=== PATIENT | female | born 1930 | race Caucasian/White ===

== ENCOUNTER 2018-04-10 20:35 | Observation (INO) | payer MEDICARE, OTHER ==
[~2018-04-10] VITALS: Ht 162.6 cm; Wt 63.5 kg
[2018-04-10] MEDS ORDERED: cloNIDine HCL 0.1 MG TAB PO ONE (21:30)
[2018-04-10 21:53] LABS: Urine WBC None Seen /hpf (0 - 5)
[2018-04-10 21:55] LABS: Basophils # (auto) 0 uL; Basophils % (auto) 0.5 % (0.0-2.0); Eosinophils # (auto) 0.2 uL; Eosinophils % (auto) 1.9 % (0.0-7.0); Hematocrit 36.3 % (36.0-46.0); Lymphocytes # (auto) 2.3 uL; Lymphocytes % (auto) 25.1 % (10.0-50.0); Mean Corpuscular Hemoglobin 31.7 pg (28.0-32.0); Mean Corpuscular Hgb Conc. 35.7 g/dL (32.0-36.0); Mean Corpuscular Volume 88.8 fL (80.0-100.0); Monocytes # (auto) 0.8 uL; Monocytes % (auto) 8.3 % (0.0-12.0); Neutrophils % (auto) 64.2 % (37.0-80.0); Nucleated Red Blood Cells % 0.1 %; Platelet Count (auto) 191 10^3/uL (140-450); Red Blood Cells 4.09 10^6/uL (4.0-5.20); Red Cell Distribution Width 13.2 % (11.8-14.3); White Blood Cell 9.3 10^3/uL (4.4-10.8)
[2018-04-10 22:10] LABS: Partial Thromboplastin Time 27.8 sec (23.78-33.04); Prothrombin Time 10.7 sec (9.27-12.13)
[2018-04-10 22:11] LABS: Urine Bacteria NONE SEEN /hpf (None Seen); Urine Blood Negative /uL (Negative); Urine Specific Gravity 1.004 (1.001-1.035)
[2018-04-10 22:31] LABS: Alcohol, Urine < 3.0 mg/dL (0-5); Amphetamine Screen, Urine NEGATIVE (NEGATIVE); Barbiturate Scree,Urine NEGATIVE (NEGATIVE); Benzodiazephine Screen, Urine NEGATIVE (NEGATIVE); Cannabinoid Screen, Urine NEGATIVE (NEGATIVE); Cocaine Screen, Urine NEGATIVE (NEGATIVE); Opiate Scree,Urine NEGATIVE (NEGATIVE); Phencyclidine Screen, Urine NEGATIVE (NEGATIVE)
[2018-04-10 22:36] LABS: Alanine Aminotransferase 30 U/L (13-56); Albumin 3.8 g/dL (3.4-5.0); Alkaline Phosphatase 70 U/L (45-117); Anion Gap 5 (5-15); Aspartate Aminotransferase 18 U/L (15-37); BUN/Creatinine Ratio 12.9; Bilirubin, Total 0.7 mg/dL (0.2-1.0); Blood Urea Nitrogen 9 mg/dL (7-18); Calcium 8.1 mg/dL (8.5-10.1); Carbon Dioxide 25 mmol/L (21-32); Chloride 96 mmol/L (98-107); GFR African American 102 mL/min; GFR Non-African American 84 mL/min; Glucose 102 mg/dL (74-106); Magnesium 2.1 mg/dL (1.6-2.6); Potassium 3.7 mmol/L (3.5-5.1); Sodium 126 mmol/L (136-145); Total Protein 6.6 g/dL (6.4-8.2)
[2018-04-11] MEDS ORDERED: FUROSEMIDE 20 MG/2 ML VIAL IV ONE (01:15)
[2018-04-11 01:40] VITALS: BP 124/83
== END 2018-04-11 01:41 | disposition home or self-care (01) | DRG 948 ==
LOC: ER 20:41 → OVERFLOW 20:42 → ER 04-11 01:41
PROVIDERS: ADMIT Emergency Medicine; ATTEND Emergency Medicine
DX: R53.1 Weakness (principal); E87.1 Hypo-osmolality and hyponatremia; R42 Dizziness and giddiness; I11.0 Hypertensive heart disease with heart failure; I50.9 Heart failure, unspecified; E78.00 Pure hypercholesterolemia, unspecified; Z86.73 Personal history of transient ischemic attack (TIA), and cerebral infarction without residual deficits
CPT/HCPCS: 36415; 70450; 71045; 80053; 80307; 81001; 83735; 83880; 84484; 85025; 85610; 85730; 93005; 99285; G0378

== ENCOUNTER 2018-11-24 18:29 | Emergency (ER) | payer MEDICARE, OTHER ==
[~2018-11-24] VITALS: Ht 157.5 cm; Wt 64.4 kg
[2018-11-24 20:15] VITALS: BP 112/56
== END 2018-11-24 22:02 | disposition home or self-care (01) ==
LOC: ER 18:29
DX: S70.02XA Contusion of left hip, initial encounter (principal); S70.12XA Contusion of left thigh, initial encounter; S00.03XA Contusion of scalp, initial encounter; E78.5 Hyperlipidemia, unspecified; I10 Essential (primary) hypertension; F03.90 Unspecified dementia, unspecified severity, without behavioral disturbance, psychotic disturbance, mood disturbance, and anxiety; Z86.73 Personal history of transient ischemic attack (TIA), and cerebral infarction without residual deficits; W18.39XA Other fall on same level, initial encounter; Y93.89 Activity, other specified; Y99.8 Other external cause status; Y92.89 Other specified places as the place of occurrence of the external cause
CPT/HCPCS: 70450; 72170; 82962; 94761

== ENCOUNTER 2018-11-30 14:59 | Inpatient (IN) | payer MEDICARE, OTHER ==
[~2018-11-30] VITALS: Ht 167.6 cm; Wt 68.2 kg
[2018-11-30 17:23] LABS: Urine Bacteria MANY /hpf (None Seen); Urine Blood Negative /uL (Negative); Urine WBC 78 /hpf (0 - 5)
[2018-11-30 18:27] LABS: Basophils # (auto) 0 uL; Basophils % (auto) 0.5 % (0.0-2.0); Eosinophils # (auto) 0.2 uL; Eosinophils % (auto) 1.7 % (0.0-7.0); Hematocrit 26.5 % (36.0-46.0); Hemoglobin 9.2 g/dL (12.2-16.2); Lymphocytes # (auto) 1.4 uL; Lymphocytes % (auto) 14.4 % (10.0-50.0); Mean Corpuscular Hemoglobin 31.5 pg (28.0-32.0); Mean Corpuscular Hgb Conc. 34.5 g/dL (32.0-36.0); Mean Corpuscular Volume 91.1 fL (80.0-100.0); Monocytes # (auto) 0.9 uL; Monocytes % (auto) 9.5 % (0.0-12.0); Neutrophils # (auto) 7.1 uL; Neutrophils % (auto) 73.9 % (37.0-80.0); Platelet Count (auto) 240 10^3/uL (140-450); Red Blood Cells 2.92 10^6/uL (4.0-5.20); Red Cell Distribution Width 13.6 % (11.8-14.3); White Blood Cell 9.6 10^3/uL (4.4-10.8)
[2018-11-30 18:38] LABS: Albumin 3.8 g/dL (3.4-5.0); Anion Gap 7 (5-15); Blood Urea Nitrogen 17 mg/dL (7-18); Calcium 8.5 mg/dL (8.5-10.1); Carbon Dioxide 25 mmol/L (21-32); Chloride 103 mmol/L (98-107); Glucose 111 mg/dL (74-106); Potassium 4.4 mmol/L (3.5-5.1); Sodium 135 mmol/L (136-145)
[2018-11-30 18:40] LABS: INR 0.96 (0.9-1.15); Partial Thromboplastin Time 28.9 sec (23.78-33.04); Prothrombin Time 10.3 sec (9.27-12.13)
[2018-11-30 18:42] LABS: Alanine Aminotransferase 20 U/L (13-56); Alkaline Phosphatase 61 U/L (45-117); Aspartate Aminotransferase 18 U/L (15-37); BUN/Creatinine Ratio 23.3; GFR African American 97 mL/min; GFR Non-African American 80 mL/min; Total Protein 6.5 g/dL (6.4-8.2)
[2018-11-30] MEDS ORDERED: ADENOSINE 6 MG/2 ML INJ IV ONE ×2 (19:20→19:45)
[2018-11-30] MEDS ORDERED: LORazepam 2MG/ML-1ML VIAL ONE (19:56)
[2018-11-30] MEDS ORDERED: LORazepam 2MG/ML-1ML VIAL IV ONE ×2 (20:00)
[2018-11-30] MEDS ORDERED: HYDROcodone-ACET 5/325MG TAB PO PRN (20:00)
[2018-11-30] MEDS ORDERED: ACETAMINOPHEN 500 MG TAB PO PRN (20:00)
[2018-11-30] MEDS ORDERED: ONDANSETRON HCL 4 MG/2 ML VIAL IV PRN (20:00)
[2018-11-30] MEDS ORDERED: MORPHINE SULF INJ 2 MG/ML SYRINGE 1ML IV PRN (20:00)
[2018-11-30] MEDS ORDERED: LORazepam 2MG/ML-1ML VIAL IV PRN (20:00)
[2018-11-30] MEDS ORDERED: NITROGLYCERIN 0.4 MG SL TAB SL PRN (20:00)
[2018-11-30] MEDS: cefTRIAXone 1GM/50ML D5W 50 ML IV SCH (20:43)
[2018-11-30] MEDS: SODIUM CHLORIDE 0.9% 1,000 ML IV SCH (20:43)
--- NOTE | 2018-11-30 21:17 | NUR ---
Telemetry admit from [facility] admitted to Telemetry unit after SBAR received. Patient oriented to Richard Sena, primary RN, unit, room, bed, and unit policies regarding patient care and visiting hours. Patient now on continuous telemetry monitoring, tele box # [8] and telemetry reading on arrival to unit is [SR 85]. Patient weighed by bedscale. PATIENT CONFUSED, ALERT AND ORIENTED X 0. KELLY CATH IN PLACE DRAINING GRAVITY. BED IN LOWEST POSITION WITH SIDE RAILS UP X 2. CALL HILLIARD WITHIN REACH. ALARM ON. SITTER AT BEDSIDE FOR SAFETY. CONTINUE TO MONITOR FOR CHANGES Q1H AND PRN. Note: []
--- NOTE | 2018-11-30 21:33 | NUR ---
HOSPITALIST Called/paged LOBO DAO called re: PATIENT'S AGITATE AND TRYING TO REMOVE KELLY AND TELE BOX AND GET OUT OF BED. ATIVAN WAS GIVEN 1 HOUR AGO PER ER NURSE. PATIENT STILL AGITATE AND BECAME COMBATIVE. MITTENS ON, PATIENT TRY TO REMOVE THE MITTENS. CHARGE NURSE INFORMED AND CAME TO CHECK PATIENT. MIGHT NEED MORE MEDICATION TO CALM PATIENT DOWN. Waiting for call back. Continue care.
[2018-11-30 21:56] VITALS: BP 142/67
--- NOTE | 2018-11-30 22:04 | NUR ---
HOSPITALIST LOBO DAO CAME TO FLOOR, UPDATED PATIENT'S CONDITION. ORDERED BENADRYL 50MG IV ONCE. WILL CARRY IT OUT. CONTINUE TO MONITOR.
[2018-11-30] MEDS ORDERED: diphenhdrAMINE HCL 50 MG/1 ML VL IV ONE (22:15)
[2018-11-30] MEDS: DOCUSATE SOD 100 MG CAP PO SCH (23:17)
[2018-11-30] MEDS: MEMANTINE HCL 5 MG TAB PO SCH (23:18)
--- NOTE | 2018-11-30 23:18 | NUR ---
ORAL MEDICATION GIVEN ORDERED WITH APPLE SAUCE. PATIENT SWALLOWED WELL. NO S/S OF ASPIRATION NOTED. CONTINUE TO MONITOR.
[2018-11-30 23:22] VITALS: BP 142/67
[2018-12-01] VITALS (7 sets, daily range): BP systolic 135–172; BP diastolic 58–89
[2018-12-01] MEDS ORDERED: ALPR0.25 PO (00:13)
[2018-12-01] MEDS ORDERED: ALPR0.5T PO (00:13)
[2018-12-01] MEDS ORDERED: ASCO500T11 PO (00:14)
[2018-12-01] MEDS ORDERED: LEV100T PO (00:14)
--- NOTE | 2018-12-01 02:24 | NUR ---
PATIENT RESTING BED WITH MITTENS ON. STILL AGITATED AND TRIED TO REMOVE BLANKET AND MITTENS OUT. NO S/S OF DISTRESS NOTED. SITTER AT BEDSIDE FOR SAFETY. CONTINUE CAR.E
--- NOTE | 2018-12-01 04:24 | NUR ---
PATIENT SLEEPING. NO S/S OF DISTRESS NOTED. CONTINUE CARE.
[2018-12-01] MEDS: SODIUM CHLORIDE 0.9% 1,000 ML IV SCH ×2 (05:09→14:05)
[2018-12-01 06:13] LABS: Basophils # (auto) 0 uL; Basophils % (auto) 0.5 % (0.0-2.0); Eosinophils # (auto) 0.2 uL; Eosinophils % (auto) 2.7 % (0.0-7.0); Hematocrit 24.7 % (36.0-46.0); Hemoglobin 8.5 g/dL (12.2-16.2); Lymphocytes # (auto) 1.2 uL; Lymphocytes % (auto) 16.4 % (10.0-50.0); Mean Corpuscular Hemoglobin 31.5 pg (28.0-32.0); Mean Corpuscular Hgb Conc. 34.6 g/dL (32.0-36.0); Mean Corpuscular Volume 90.9 fL (80.0-100.0); Monocytes # (auto) 0.8 uL; Monocytes % (auto) 11.1 % (0.0-12.0); Neutrophils # (auto) 5.2 uL; Neutrophils % (auto) 69.3 % (37.0-80.0); Platelet Count (auto) 215 10^3/uL (140-450); Red Blood Cells 2.72 10^6/uL (4.0-5.20); Red Cell Distribution Width 13.3 % (11.8-14.3); White Blood Cell 7.5 10^3/uL (4.4-10.8)
[2018-12-01 06:53] LABS: Calcium 8.1 mg/dL (8.5-10.1); Potassium 3.7 mmol/L (3.5-5.1)
--- NOTE | 2018-12-01 08:00 | NUR ---
RECEIVED PT RESTING SLEEPING COMFORTABLY, CALL LIGHT WITHIN REACH, SITTER AT BED SIDE, NO PAIN OR DISTRESS NOTED OR REPORTED AT THIS TIME, WILL CONTINUE TO MONITOR PT.
[2018-12-01] MEDS: MEMANTINE HCL 5 MG TAB PO SCH ×2 (09:41→21:09)
[2018-12-01] MEDS: DOCUSATE SOD 100 MG CAP PO SCH ×2 (09:41→21:09)
[2018-12-01] MEDS: cefTRIAXone 1GM/50ML D5W 50 ML IV SCH (09:41)
[2018-12-01] MEDS: PANTOPRAZOLE 40 MG TAB PO SCH (09:41)
--- NOTE | 2018-12-01 12:40 | NUR ---
DR. VALLECILLO AT BED SIDE TO SEE PT, DOCTOR DISCUSSED PT'S PLAN OF CARE WITH PT'S FAMILY.
[2018-12-01] MEDS ORDERED: LOSA25TA40 PO (13:32)
--- NOTE | 2018-12-01 13:50 | NUR ---
CALLED AND SPOKE TO DR. VALLECILLO TO INFORM HER THAT PT'S BP IS 184/89 WITH HR 75, DOCTOR INFORM WHAT BP MEDICATION PT TAKES AT HOME, AND THAT PT HAS NO BP MEDICATION SCHEDULE OR PRN, DR. VALLECILLO WILL ORDER MEDICINE FOR THIS PT.
[2018-12-01] MEDS ORDERED: LOSARTAN POTASSIUM 25 MG TAB PO ONE (14:00)
[2018-12-01] MEDS ORDERED: LORazepam 2MG/ML-1ML VIAL IV PRN (14:15)
--- NOTE | 2018-12-01 15:50 | NUR ---
CALLED AND SPOKE TO DR. VALLECILLO TO INFORM HER THAT PT'S RE-CHECK BP IS 184/79, 75 AFTER HER LOSARTAN WAS GIVEN, ORDERS RECEIVE FOR HYDRALAZINE, WILL CONTINUE TO MONITOR PT.
[2018-12-01] MEDS: hydrALAZINE HCL 20 MG/ML VL IV PRN (16:23)
--- NOTE | 2018-12-01 19:25 | NUR ---
OPENING NOTE REPORT RECEIVED FROM DAY SHIFT PATIENT IS ALERT AND CONFUSED. PT ONLY ABLE TO STATE FIRST NAME. PHYSICAL ASSESSMENT DONE-SEE INTERVENTIONS. LARGE BRUISE NOTED TO LEFT THIGH/BUTTOCK. LEFT EYE AND LEFT CHIN BRUISE ALSO NOTED. PATIENT ABLE TO TURN AND REPOSITION SELF IN BED. KELLY DRAINING CLEAR YELLOW URINE TO GRAVITY. MITTENS IN PLACE TO BILATERAL HANDS. SITTER AT BEDSIDE FOR PATIENT SAFETY. CALL LIGHT WITHIN REACH.
[2018-12-01] MEDS ORDERED: HALOPERIDOL LACTATE 5 MG/ML INJ VIAL IM PRN (19:45)
[2018-12-01] MEDS: DONEPEZIL HYDROCHLORIDE 5 MG TAB PO SCH (21:09)
[2018-12-01] MEDS ORDERED: DONEPEZIL HYDROCHLORIDE 5 MG TAB PO SCH (22:00)
[2018-12-02 04:47] VITALS: BP 162/82
[2018-12-02] MEDS: hydrALAZINE HCL 20 MG/ML VL IV PRN ×2 (06:14→21:59)
[2018-12-02] MEDS: LEVOTHYROXINE SODIUM 50 MCG TAB PO SCH (06:14)
[2018-12-02] MEDS: SODIUM CHLORIDE 0.9% 1,000 ML IV SCH (06:14)
--- NOTE | 2018-12-02 06:58 | NUR ---
CLOSING NOTE PATIENT RESTING IN BED WITH EYES CLOSED. NO S/S OF DISTRESS. SITTER AT BEDSIDE FOR SAFETY. CALL LIGHT WITHIN REACH. WILL ENDORSE CARE TO AM NURSE.
[2018-12-02 07:02] LABS: Hematocrit 27.8 % (36.0-46.0); Hemoglobin 9.9 g/dL (12.2-16.2)
[2018-12-02 07:14] LABS: Potassium 3.5 mmol/L (3.5-5.1)
--- NOTE | 2018-12-02 07:15 | NUR ---
OPENING SHIFT NOTE ASSUMED CARE OF PATIENT FROM COMPRESSED AIR PILE DRIVER OPERATOR SONYA GALEANO. PATIENT IS AWAKE AND ALERT X1 (NAME). WILL CONTINUE TO REORIENT PATIENT TO TIME, PLACE, AND SITUATION THROUGHOUT SHIFT. PATIENT HAS NO S/S OF DISTRESS/SOB OR PAIN. INSTRUCTED PATIENT ON POC, PATIENT VERBALIZED UNDERSTANDING. BED IS IN LOWEST POSITION WITH SIDE RAILS RAISED X2, BED WHEELS LOCKED, KELLY IS HANGING BELOW BLADDER AND IS DRAINING YELLOW URINE, SITTER AT BEDSIDE, AND CALL LIGHT IS WITHIN REACH. WILL CONTINUE TO MONITOR.
[2018-12-02 07:17] LABS: Calcium 8.5 mg/dL (8.5-10.1)
[2018-12-02 07:34] VITALS: BP 141/87
--- NOTE | 2018-12-02 08:00 | NUR ---
MD IVEY AT BEDSIDE UPDATED MD ON PATIENT'S STATUS. MD IS AWARE. NO NEW ORDERS GIVEN.
[2018-12-02 08:30] VITALS: BP 147/87
[2018-12-02] MEDS: MEMANTINE HCL 5 MG TAB PO SCH ×2 (09:54→21:58)
[2018-12-02] MEDS: cefTRIAXone 1GM/50ML D5W 50 ML IV SCH (09:54)
[2018-12-02] MEDS: PANTOPRAZOLE 40 MG TAB PO SCH (09:55)
[2018-12-02] MEDS: DOCUSATE SOD 100 MG CAP PO SCH ×2 (09:55→21:59)
[2018-12-02] MEDS ORDERED: LOSARTAN POTASSIUM 25 MG TAB PO SCH (10:00)
[2018-12-02] MEDS ORDERED: LACTULOSE 20Gm/30ML SOLN PO ONE (14:15)
[2018-12-02] MEDS ORDERED: DOCUSATE SOD 100 MG CAP PO ONE ×3 (14:15→15:00)
--- NOTE | 2018-12-02 14:15 | NUR ---
SAFETY LEADER AT BEDSIDE
--- NOTE | 2018-12-02 14:30 | NUR ---
MD WILSON AT BEDSIDE. UPDATED MD ON PATIENT'S STATUS. INFORMED MD PATIENT WAS GIVEN COLACE IN THE MORNING ORDERED BUT PATIENT HAS NOT HAD A BM YET. MD CANCELLED EEG ORDERS AND ORDERED LACTULOSE AND COLACE TO BE GIVEN . WILL FOLLOW THROUGH WITH ORDERS.
[2018-12-02 14:40] VITALS: BP 146/76
--- NOTE | 2018-12-02 15:01 | NUR ---
IV insertion IV access obtained, via clean sterile technique by inserting 22 gauge catheter at RFA after 1 attempt. IV secured properly. No trauma to site. Patient tolerated well. IV removal RAC IV DC'd with clean sterile technique, catheter fully intact. Pressure dressing applied to site. Patient tolerated well.
[2018-12-02 17:10] VITALS: BP 147/97
--- NOTE | 2018-12-02 19:11 | NUR ---
CLOSING SHIFT NOTE ENDORSED CARE TO FLAGGER SONYA GALEANO. PATIENT HAS NO S/S OF DISTRESS/SOB OR PAIN AT THIS TIME.
--- NOTE | 2018-12-02 19:28 | NUR ---
OPENING NOTE REPORT RECEIVED FROM DAY SHIFT PATIENT IS ALERT/CONFUSED AND PLEASANT. PT ONLY ALERT TO SELF AT THIS TIME. PHYSICAL ASSESSMENT DONE-SEE INTERVENTIONS. LARGE BRUISE NOTED TO LEFT THIGH/BUTTOCK. LEFT EYE AND LEFT CHIN BRUISE ALSO NOTED. PATIENT ABLE TO TURN AND REPOSITION SELF IN BED. KELLY DRAINING CLEAR YELLOW URINE TO GRAVITY. SITTER AT BEDSIDE FOR PATIENT SAFETY. CALL LIGHT WITHIN REACH.
[2018-12-02] MEDS: DONEPEZIL HYDROCHLORIDE 5 MG TAB PO SCH (21:58)
[2018-12-02 22:00] VITALS: BP 160/77
--- NOTE | 2018-12-02 23:58 | NUR ---
HOSPITALIST PAGED REGARDING PATIENTS BP STILL ELEVATED: 170/86 HYDRALAZINE ALREADY ADMINISTERED WITHOUT SUCCESS WILL WAIT FOR MD TO CALL BACK
[2018-12-03] VITALS (8 sets, daily range): BP systolic 145–153; BP diastolic 63–91
--- NOTE | 2018-12-03 00:26 | NUR ---
RECEIVED CALL BACK FROM HOSPITALIST SAEED NEW ORDER RECEIVED FOR CLONIDINE 0.1MG PO X1 DOSE WILL CARRY OUT ORDER
[2018-12-03] MEDS ORDERED: cloNIDine HCL 0.1 MG TAB PO ONE (00:30)
--- NOTE | 2018-12-03 02:04 | NUR ---
BP RECHECK BP NOW 148/91
[2018-12-03] MEDS: LEVOTHYROXINE SODIUM 50 MCG TAB PO SCH (06:45)
--- NOTE | 2018-12-03 06:58 | NUR ---
CLOSING NOTE PATIENT RESTING IN BED WITH EYES CLOSED. NO S/S OF DISTRESS NOTED. SITTER AT BEDSIDE. CALL LIGHT WITHIN REACH. WILL ENDORSE CARE TO AM NURSE.
--- NOTE | 2018-12-03 07:20 | NUR ---
Patient in bed, awake, oriented x1, no acute distress noted. Sitter at bedside.
--- NOTE | 2018-12-03 08:25 | NUR ---
Dr. Watson came over for follow up Neurology Consult. to put in orders for Haldol PRN.
[2018-12-03] MEDS ORDERED: HALOPERIDOL LACTATE 5 MG/ML INJ VIAL IM PRN (08:45)
--- NOTE | 2018-12-03 09:32 | NUR ---
Dr. Curtis ordered to let her know when the patient's son calls or come over.
--- NOTE | 2018-12-03 09:32 | NUR ---
Dr. Curtis ordered to discontinue the Mei catheter before discharge.
[2018-12-03] MEDS: PANTOPRAZOLE 40 MG TAB PO SCH (09:44)
[2018-12-03] MEDS: MEMANTINE HCL 5 MG TAB PO SCH (09:44)
[2018-12-03] MEDS: DOCUSATE SOD 100 MG CAP PO SCH (09:44)
[2018-12-03] MEDS: cefTRIAXone 1GM/50ML D5W 50 ML IV SCH (09:45)
--- NOTE | 2018-12-03 09:48 | NUR ---
Patient stated her back hurts. Tylenol PO given for pain as ordered. Sitter at bedside.
[2018-12-03] MEDS ORDERED: LOSARTAN POTASSIUM 25 MG TAB PO SCH (10:00)
--- NOTE | 2018-12-03 11:08 | NUR ---
Called Dr. Curtis. Informed MD that patient's son Kristopher ([phone]; Password: "[id number]") at bedside. Dr. Curtis said she's coming over to speak with the patient and son in 15 minutes. Son made aware.
--- NOTE | 2018-12-03 12:39 | NUR ---
Pt signed IM (daughter at bedside) and copy placed in chart
--- NOTE | 2018-12-03 12:57 | NUR ---
Pt is a pleasant alert and oriented to self / confused female that resides at [facility]. SS consult for hospice eval upon discharge. Per son , Kristopher, he has been speaking with [facility] for the past few weeks and would like for them to come out and do evaluation. Contacted [facility] and faxed requested medical information. Offshoring Manager will be coming out to do evaluation shortly. Contacted SONYA Acnua at [facility], and pt is able to return upon discharge. Will followup after evaluation. Addendum: 12/03/18 at 1304 by CANDE ORTEZ Amended: Links added.
--- NOTE | 2018-12-03 14:15 | NUR ---
Family asked if the Director Of Operations Support has sent the papers to [facility]. Paged Director Of Operations Support Cleo.
--- NOTE | 2018-12-03 14:25 | NUR ---
Inoculator Cleo called back. Cleo said she already sent the papers to [facility]. Refer to Ammonium Nitrate Neutralizer notes.
--- NOTE | 2018-12-03 15:40 | NUR ---
Flora from [facility] came over to speak with the patient and son.
--- NOTE | 2018-12-03 17:00 | NUR ---
Flora from [facility] said patient is going to be picked up by [facility] between 6:30 pm to 7:00 pm tonight going back to [facility].
--- NOTE | 2018-12-03 17:25 | NUR ---
Called [facility] Inez ([phone]). Report given to Nurse Cara. Cara made aware Flora came over and spoke with the patient and son Kristopher that patient is coming back to [facility] with [facility], resume home medications as per hospice. Addendum: 12/03/18 at 1734 by Sia Mann RN [facility] to cherry picker operator the patient between 6:30 pm to 7:00 pm obey.
[2018-12-03] MEDS ORDERED: Ensure Enlive Chocolate 8oz Bottle PO SCH (18:00)
--- NOTE | 2018-12-03 19:20 | NUR ---
RECEIVED PATIENT LYING IN BED, AWAKE, ALERT, ORIENTED X2, WITH FAMILY AT BEDSIDE. NO S/S OF RESPIRATORY DISTRESS, DENIES SOB AND CHEST PAIN. ORIENTED ON PLAN OF CARE. BED IS LOCKED AND IN LOWEST LEVEL, SIDE RAILS UP X2, CALL LIGHT WITHIN REACH. WILL CONTINUE TO MONITOR.
--- NOTE | 2018-12-03 20:00 | NUR ---
PATIENT'S SON, DOMINIK RECEIVED AND SIGNED DISCHARGE PAPERS
[2018-12-03] MEDS: hydrALAZINE HCL 20 MG/ML VL IV PRN (20:43)
--- NOTE | 2018-12-03 21:10 | NUR ---
PICKED UP BY [facility], FAMILY WAS PRESENT. PATIENT IS AWAKE, ALERT, ORIENTED X2-3. NO S/S OF RESP DISTRESS, V/S STABLE. KELLY CATH WAS REMOVED, PATIENT TOLERATED, CATHETER WAS INTACT. IV WAS REMOVED, CATHETER WAS INTACT. TELE BOX SENT TO [facility].
== END 2018-12-03 21:10 | disposition hospice, home (50) | DRG 689 ==
LOC: EDBD 14:59 → ER 14:59 → TELE 20:08 → TELE-EAST 21:12
PROVIDERS: ADMIT Nurse Practitioner Acute Care; ATTEND Internal Medicine
DX: N39.0 Urinary tract infection, site not specified (principal); G93.41 Metabolic encephalopathy; J98.11 Atelectasis; M48.56XA Collapsed vertebra, not elsewhere classified, lumbar region, initial encounter for fracture; N83.209 Unspecified ovarian cyst, unspecified side; F02.80 Dementia in other diseases classified elsewhere, unspecified severity, without behavioral disturbance, psychotic disturbance, mood disturbance, and anxiety; I10 Essential (primary) hypertension; E03.9 Hypothyroidism, unspecified; D64.9 Anemia, unspecified; Z66 Do not resuscitate; E78.5 Hyperlipidemia, unspecified; G30.9 Alzheimer's disease, unspecified; K83.8 Other specified diseases of biliary tract; S70.12XA Contusion of left thigh, initial encounter; G43.909 Migraine, unspecified, not intractable, without status migrainosus; R19.00 Intra-abdominal and pelvic swelling, mass and lump, unspecified site; W18.30XA Fall on same level, unspecified, initial encounter; I67.2 Cerebral atherosclerosis; K59.00 Constipation, unspecified; K80.20 Calculus of gallbladder without cholecystitis without obstruction; Z51.5 Encounter for palliative care; Z79.899 Other long term (current) drug therapy; Z80.1 Family history of malignant neoplasm of trachea, bronchus and lung; Z86.73 Personal history of transient ischemic attack (TIA), and cerebral infarction without residual deficits; Y93.89 Activity, other specified; Y92.128 Other place in nursing home as the place of occurrence of the external cause; Y99.8 Other external cause status
CPT/HCPCS: 36415; 51702; 70450; 70486; 71250; 74176; 76705; 80048; 80053; 80061; 81001; 82378; 83036; 83735; 84443; 84484; 85014; 85018; 85025; 85610; 85730; 86304; 87081; 87086; 96374; 96375; 97163; G0378; J0153; J0696